=== PATIENT | male | born 1965 | race Caucasian/White ===

== ENCOUNTER 2016-10-20 16:22 | Emergency (ER) | payer OTHER ==
[~2016-10-20] VITALS: Ht 185.4 cm; Wt 84.8 kg
--- NOTE | ~2016-10-20 | EKG ---
PATIENT: DORCAS VENCES UNIT #: [id number] Ventricular Rate: 85 BPM Atrial Rate: 85 BPM P-R Interval: 170 ms QRS Duration: 98 ms Q-T Interval: 406 ms QTC Calculation(Bezet): 483 ms P [place]: 54 degrees Calculated R [place]: 72 degrees Calculated T [place]: 76 degrees Diagnosis Line: Normal sinus rhythm Diagnosis Line: Left ventricular hypertrophy with repolarization Diagnosis Line: abnormality Diagnosis Line: Prolonged QT Diagnosis Line: Abnormal ECG Diagnosis Line: When compared with ECG of 19-APR-2016 22:43, Diagnosis Line: ST now depressed in Lateral leads Diagnosis Line: Confirmed by MICHAEL BRUSH MD ([id number]) on 10/23/2016 Diagnosis Line: 7:50:18 AM INTERPRETING MD: GONSALO CHAPARRO
[~2016-10-20 16:22] MED LIST: ARICEPT PO; EFFEXOR37.5 MG PO; EFFEXOR75 M1 PO; GABAPENTIN600 MG PO; NEURONTIN600 MG PO; TEGRETOL PO; TEGRETOL XR PO
== END 2016-10-21 07:06 | disposition left against medical advice (07) ==
LOC: CED 16:22
DX: Z53.21 Procedure and treatment not carried out due to patient leaving prior to being seen by health care provider (principal)
CPT/HCPCS: 93005